=== PATIENT | female | born 1985 | race Caucasian/White ===

== ENCOUNTER 2017-05-08 23:53 | Inpatient (IN) | payer OTHER ==
[~2017-05-08] VITALS: Ht 170.2 cm; Wt 69.0 kg
[~2017-05-08 23:53] MED LIST: MOTRIN800 MG PO; PERCOCET 5/31 TABLET PO; PRENATAL TABLE1 EAC3 PO; SYNTHROID25 MCG PO; ZOFRAN ODT4 MG PO
[2017-05-09] VITALS (32 sets, daily range): BP systolic 90–148; BP diastolic 53–81
[2017-05-09 00:38] LABS: EOSINOPHIL (%) 0.5 % (0-5); EOSINOPHIL COUNT 0.1 K/uL (0-0.3); HEMATOCRIT 37.9 % (36.0-46.0); IMMATURE GRANULOCYTE (%) 0.6 % (0.0-0.7); IMMATURE GRANULOCYTE COUNT 0.1 K/uL; INSTRUMENT ABS NEUTROPHIL CT 8.3 K/uL; LYMPHOCYTE COUNT 1.9 K/uL (1.0-2.8); MCH 32.7 PG (29.0-34.0); MCHC 34.6 G/DL (30.0-36.0); MCV 94.5 FL (83-99); MEAN PLAT.VOLUME 11.6 uM^3 (9.5-12.4); MONOCYTE (%) 7.1 % (3-12); MONOCYTE COUNT 0.8 K/uL (0-0.8); NEUTROPHIL (%) 74.8 % (45-76); NEUTROPHIL COUNT 8.3 K/uL (1.8-6.4); PLATELET COUNT 186 K/uL (156-360); RBC DIS.WIDTH-CV 12.7 % (11.8-14.6); RBC DIS.WIDTH-SD 44.1 % (39-53); RED BLOOD COUNT 4.01 M/uL (3.80-5.20); WHITE BLOOD COUNT 11.1 K/uL (4.1-10.2)
[2017-05-09] MEDS ORDERED: MOTRIN800 MG PO (10:35)
[2017-05-10 00:25] VITALS: BP 107/56
[2017-05-10 07:19] VITALS: BP 98/51
[2017-05-10 15:32] VITALS: BP 99/58
[2017-05-10 23:04] VITALS: BP 108/56
[2017-05-11 08:24] VITALS: BP 103/74
== END 2017-05-11 14:05 | disposition home or self-care (01) | DRG 775 ==
LOC: LDRP-OP 23:53 → 2WEST 23:54 → LDRP-OP 05-10 06:44 → 2WEST 05-11 14:05 → LDRP-OP 06-07 15:44
PROVIDERS: Nurse Practitioner
PROC: 10E0XZZ Delivery of Products of Conception, External Approach (ICD-10-PCS; principal; 2017-05-09)
PROC: 10907ZC Drainage of Amniotic Fluid, Therapeutic from Products of Conception, Via Natural or Artificial Opening (ICD-10-PCS; principal; 2017-05-09)
PROC: 00HU33Z Insertion of Infusion Device into Spinal Canal, Percutaneous Approach (ICD-10-PCS; 2017-05-09)
PROC: 3E0R3CZ (ICD-10-PCS; 2017-05-09)
DX: O99.824 Streptococcus B carrier state complicating childbirth (principal); L29.9 Pruritus, unspecified; T36.8X5A Adverse effect of other systemic antibiotics, initial encounter; O99.284 Endocrine, nutritional and metabolic diseases complicating childbirth; E03.9 Hypothyroidism, unspecified; O22.13 Genital varices in pregnancy, third trimester; O22.03 Varicose veins of lower extremity in pregnancy, third trimester; Z88.0 Allergy status to penicillin; Z3A.40 40 weeks gestation of pregnancy; Z37.0 Single live birth
CPT/HCPCS: 85025; C1755; G0378; J2405; J2765; J3010; J3370; J7120